=== PATIENT | male | born 1945 | race Caucasian/White ===

== ENCOUNTER 2016-11-02 16:04 | Emergency (ER) | payer OTHER, BC ==
[2016-11-02 16:18] LABS: EOSINOPHIL (%) 2.3 % (0-5); EOSINOPHIL COUNT 0.2 K/uL (0-0.3); HEMATOCRIT 45.8 % (38.0-50.0); IMMATURE GRANULOCYTE (%) 0.3 % (0.0-0.7); IMMATURE GRANULOCYTE COUNT 0.3 K/uL; LYMPHOCYTE COUNT 1.9 K/uL (1.0-2.8); MCH 29.2 PG (29.0-34.0); MCHC 34.1 G/DL (30.0-36.0); MCV 85.6 FL (86-99); MEAN PLAT.VOLUME 8.7 uM^3 (9.0-12.4); MONOCYTE (%) 11.8 % (3-12); NEUTROPHIL (%) 63.4 % (45-76); NEUTROPHIL COUNT 5.6 K/uL (1.8-6.4); PLATELET COUNT 281 K/uL (156-360); RBC DIS.WIDTH-CV 13.6 % (11.8-14.6); RBC DIS.WIDTH-SD 41.9 % (39-53); RED BLOOD COUNT 5.35 M/uL (4.00-5.50); WHITE BLOOD COUNT 8.8 K/uL (4.1-10.2)
[2016-11-02 16:29] LABS: AMYLASE 120 IU/L (1-118); CHLORIDE 102 mEq/L (99-109); POTASSIUM 3.4 mEq/L (3.7-5.4); SODIUM 141 mEq/L (136-147)
[2016-11-02 16:30] LABS: GLUCOSE 121 mg/dL (70-99)
[2016-11-02 16:32] LABS: ANION GAP 13 MEQ/L (2-14)
[2016-11-02 16:34] LABS: SERUM ETHYL ALCOHOL < 10 mg/dL
[2016-11-02 16:35] LABS: UREA NITROGEN (BUN) 28 mg/dL (9-23)
[2016-11-02 16:37] LABS: LIPASE 59 U/L (1.0-51.0)
[2016-11-02 16:44] LABS: GFR ESTIMATE (CALCULATED) 46 mL/min/
== END 2016-11-02 17:54 | disposition home or self-care (01) ==
LOC: TRA 16:04
PROVIDERS: Emergency Medicine
DX: M79.661 Pain in right lower leg (principal); R10.9 Unspecified abdominal pain; V49.40XA Driver injured in collision with unspecified motor vehicles in traffic accident, initial encounter; I10 Essential (primary) hypertension
CPT/HCPCS: 73590; 74177; 80048; 81003; 82150; 83690; 85025; 86850; 86900; 86901; 99281; 99285; G0480; J1200